=== PATIENT | male | born 1935 | race Caucasian/White ===

== ENCOUNTER 2019-09-26 22:08 | Observation (INO) | payer MEDICARE, BC ==
[~2019-09-26] VITALS: Ht 180.3 cm; Wt 79.4 kg
--- NOTE | 2019-09-26 23:56 | Diagnostic Imaging Report ---
EXAMINATION: Head CT without contrast. HISTORY:Unsteady gait, rule out possible stroke. COMPARISON:None. TECHNIQUE: Multidetector axial images were obtained from the foramen magnum to the vertex without contrast. The images were reconstructed using brain and bone algorithms. Thin section brain images were reformatted into coronal and sagittal planes. Dose modulation, iterative reconstruction, and/or weight based adjustment of the mA/kV was utilized to reduce the radiation dose to as low as reasonably achievable. Intravenous contrast: None IMAGE QUALITY: Acceptable. FINDINGS: Skull/scalp: No lytic or blastic. lesions. No surgical changes. Parenchyma: Nonspecific bilateral frontoparietal patchy white matter hypodensity are likely related to small vessel ischemic changes. No acute hemorrhage, mass or acute major vascular territorial infarct. Arteries: No density suggestive of thrombosis. Mild atherosclerotic calcification in bilateral carotid siphon. Dural sinuses: No abnormal density suggestive of thrombosis. Ventricles: Moderate compensated dilatation due to volume loss. No hydrocephalus Extra-axial spaces: No abnormal density. Brain volume: Generalized predominantly bifrontal age-related cerebral volume loss. Craniocervical junction: No mass, Chiari malformation, or basilar invagination. Sella: CSF filled empty sella. Paranasal/mastoid sinuses: Imaged portions unremarkable. IMPRESSION: No acute intracranial abnormality, particularly no acute hemorrhage, mass or acute major vascular territorial infarct. Mild supratentorial white matter microvascular ischemic changes. Generalized predominantly bifrontal cerebral volume loss. Signed by: Dr. Erlinda Mansfield M.D. on 09/26/2019 11:53 PM
[2019-09-27] VITALS (7 sets, daily range): BP systolic 124–164; BP diastolic 60–80
--- NOTE | 2019-09-27 00:35 | Diagnostic Imaging Report ---
EXAMINATION: CXR 2 VIEW - HOPD INDICATION: Unsteady gait, altered equilibrium COMPARISON: None FINDINGS: TUBES and LINES: None. LUNGS: Lungs are well inflated. Lungs are clear. There is no evidence of pneumonia or pulmonary edema. PLEURA: No pleural effusion or pneumothorax. HEART AND MEDIASTINUM: The cardiomediastinal silhouette is unremarkable. BONES AND SOFT TISSUES: No acute osseous lesion. Soft tissues are unremarkable. Degenerative changes in the spine. UPPER ABDOMEN: No free air under the diaphragm. IMPRESSION: No acute thoracic radiographic abnormality. Signed by: Roman Cortes DO on 09/27/2019 12:31 AM
[2019-09-27] MEDS ORDERED: ONDANSETRON HCL INJ 2MG/ML 2ML 2 MG/ML VIAL IV PRN (01:15)
[2019-09-27] MEDS ORDERED: ASPIRIN 81 MG CHEW TAB PO ONE (01:15)
[2019-09-27] MEDS ORDERED: SODIUM CHLORIDE FLUSH 10 ML SYR INJ PRN (01:15)
--- NOTE | 2019-09-27 01:21 | NUR ---
[facility] ETA 45 MINUTES
--- OUTSIDE RECORDS SUMMARY | 2019-09-27 01:26 | XMS REPORT ---
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 Allergies, Adverse Reactions, Alerts This patient has no known allergies or adverse reactions. Medications This patient has no known medications. Results Test Description Test Time Test Comments Text Results Atomic Results Result Comments CXR 2 VIEW - HOPD 2019-09-27 00:30:00 [place] [address] Patient Name: GIORGI HWANG MR #: [id number] : 1935 Age/Sex: 84/M Req #: [id number] [facility] Physician: Ordered by: VISHAL AGUDELO MD Report #: [id number] Location: [facility] Room/Bed: Procedure: [id number] HOPD/CXR 2 VIEW - HOPD Exam Date: 09/26/19 Exam Time: 2330 REPORT STATUS: Signed EXAMINATION: CXR 2 VIEW - HOPD INDICATION: Unsteady gait, altered equilibrium COMPARISON: None FINDINGS: TUBES and LINES: None. LUNGS: Lungs are well inflated. Lungs are clear. There is no evidence of pneumonia or pulmonary edema. PLEURA: No pleural effusion or pneumothorax. HEART AND MEDIASTINUM: The cardiomediastinal silhouette is unremarkable. BONES AND SOFT TISSUES: No acute osseous lesion. Soft tissues are unremarkable. Degenerative changes in the spine. UPPER ABDOMEN: No free air under the diaphragm. IMPRESSION: No acute thoracic radiographic abnormality. Signed by: Roman Cortes DO on 09/27/2019 12:31 AM Dictated By: ROMAN CORTES DO Transcribed By: DAVIS on 09/27/1930 COPY TO: VISHAL AGUDELO MD [facility] 2019-09-26 23:48:00 [place] [address] Patient Name: GIORGI HWANG MR #: [id number] : 1935 Age/Sex: 84/M Req #: [id number] Physician: Ordered by: VISHAL AGUDELO MD Report #: [id number] Location: [facility] Room/Bed: Procedure: [id number] HOPD/CT BRAIN [facility] Exam Date: 09/26/19 Exam Time: 2340 REPORT STATUS: Signed EXAMINATION: Head CT without contrast. HISTORY:Un steady gait, rule out possible stroke. COMPARISON:None. TECHNIQUE: Multidetector axial images were obtained from the foramen magnum to the vertex without contrast. The images were reconstructed using brain and bone algorithms. Thin section brain images were reformatted into coronal and sagittal planes. Dose modulation, iterative reconstruction, and/or weight based adjustment of the mA/kV was utilized to reduce the radiation dose to as low as reasonably achievable. Intravenous contrast: None IMAGE QUALITY: Acceptable. FINDINGS: Skull/scalp: No lytic or blastic. lesions. No surgical changes. Parenchyma: Nonspecific bilateral frontoparietal patchy white matter hypodensity are likely related to small vessel ischemic changes. No acute hemorrhage, mass or acute major vascular territorial infarct. Arteries: No density suggestive of thrombosis. Mild atherosclerotic calcification in bilateral carotid siphon. Dural sinuses: No abnormal density suggestive of thrombosis. Ventricles: Moderate compensated dilatation due to volume loss. No hydrocephalus Extra-axial spaces: No abnormal density. Brain volume: Generalized predominantly bifrontal age-related cerebral volume loss. Craniocervical junction: No mass, Chiari malformation, or basilar invagination. Sella: CSF filled empty sella. Paranasal/mastoid sinuses: Imaged portions unremarkable. IMPRESSION: No acute intracranial abnormality, particularly no acute hemorrhage, mass or acute major vascular territorial infarct. Mild supratentorial white matter microvascular ischemic changes. Generalized predominantly bifrontal cerebral volume loss. Signed by: Dr. Erlinda Mansfield M.D. on 09/26/2019 11:53 PM Dictated By: ERLINDA MANSFIELD MD 2011 Transcribed By: DAVIS on 09/26/196 COPY TO: VISHAL AGUDELO MD
--- NOTE | 2019-09-27 03:00 | NUR ---
Patient received via stretcher from the [facility] accompanied by family members. AAO x 4. Patient had no complaints of pain. Respirations even and non-labored. Admission history obtained. Initial physical assessment performed. Patient oriented to room, visiting hours, call light and plan of care. Fall precautions implemented. Patient instructed to call for assistance when needed . Call light within reach.
[2019-09-27] MEDS ORDERED: VASOTEC10 M1 PO (03:33)
[2019-09-27] MEDS ORDERED: VITAMIN D400 UNIT PO (03:33)
--- NOTE | 2019-09-27 06:21 | NUR ---
Dr. Bernal notified of routine consult. Reason: TIA. stated she would see patient later in the day.
[2019-09-27 06:33] LABS: CREATINE KINASE MB 3.2 ng/mL (0-5.0)
--- NOTE | 2019-09-27 07:00 | NUR ---
Shift report given to oncoming nurse.
--- NOTE | 2019-09-27 07:03 | NUR ---
Received patient lying in bed with eyes closed. Family at bedside. Respiration even and unlabored without SOB. Denies pain. Call light in reach.
[2019-09-27] MEDS: ASPIRIN 325 MG TAB EC PO SCH (08:39)
[2019-09-27 14:44] LABS: CREATINE KINASE 185 IU/L (30-200)
[2019-09-27] MEDS ORDERED: ENOXAPARIN SOD INJ 40 MG/0.4 ML SYR SC SCH (17:00)
[2019-09-27] MEDS: FAMOTIDINE 20 MG TAB PO SCH (18:13)
--- NOTE | 2019-09-27 19:13 | NUR ---
Report given to night assistant. Patient lying in bed with eyes open. Respiration even and unlabored without SOB. Call light in reach. Family members at bedside.
--- NOTE | 2019-09-27 19:22 | NUR ---
PT IS SITTING IN THE CHAIR WITH FAMILY AT BEDSIDE. RESPIRATION IS EVEN AND UNLABORED, NO DISTRESS NOTED. BED IN THE LOWEST POSITION, LOCKED, AND CALL LIGHT WITHIN REACH. WILL CONTINUE TO MONITOR.
[2019-09-27] MEDS ORDERED: NON-FORMULARY MEDICATION (Cholecalciferol (Vitamin D3) (Vitamin D) 50,000 UNITS) PO SCH (19:30)
[2019-09-27] MEDS ORDERED: ACETAMINOPHEN 325 MG TAB PO PRN (20:15)
[2019-09-27] MEDS ORDERED: ATORVASTATIN 20 MG TAB PO SCH (21:00)
[2019-09-28 00:09] VITALS: BP 134/71
--- NOTE | 2019-09-28 01:13 | Consultation ---
DATE OF CONSULTATION: 09/27/2019 Neurology Consult Note HISTORY OF PRESENT ILLNESS: Mr. Willis is an 84-year-old right-hand dominant man with past medical history significant only for hypertension admitted to [facility] on September 27, 2019 under observation status for a probable transient ischemic attack. On the evening of September 26, 2019, the patient was walking with his family when he experienced a sudden onset of poor balance and impairment of gait with drift towards the right side. Mr. Willis does not report a visual field cut or other disturbance, dysarthria, aphasia, weakness, numbness, dizziness, or confusion associated with the above symptoms. According to a family member at the bedside, the poor balance, gait impairment, and drift toward the right side toward persisted for approximately 10-15 minutes, then spontaneous which resolved. Later that same evening, Mr. Willis was [facility] a [facility] for further evaluation of his symptoms. Upon admission to the [facility], the patient was afebrile with a mildly elevated blood pressure and normal pulse. His neurological examination was documented as being nonfocal. Routine laboratory data, which included a urinalysis and urine drug screen was significant for mild hyponatremia with a serum sodium of 132, mild anemia as seen on the CBC with differential and platelets, and a mildly elevated myoglobin of 142. A urinalysis was within normal limits. A urine drug screen was negative. While at the [facility], a CT of the brain without contrast was performed. This study did not reveal evidence of recent large territorial ischemia or hemorrhage. Mr. Willis was subsequently transferred to [facility] and admitted under observation status for further evaluation and treatment of his symptoms. Mr. Willis has not experienced similar symptoms previously. To his knowledge, he has never had a transient ischemic attack or stroke prior to the events of September 26, 2019. The patient does endorse compliance with aspirin 325 mg by mouth daily. REVIEW OF SYSTEMS: Poor balance, impairment of gait, leaning forward/drift toward the right. Otherwise, a 12-point review of systems is negative. PAST MEDICAL HISTORY: Hypertension. PAST SURGICAL HISTORY: Bilateral cataract removal. PRIOR HOSPITALIZATIONS: None. FAMILY MEDICAL HISTORY: Both of the patient's parents from natural cause/old age. The patient had a brother who is from an unknown cancer. Mr. Willis has one biological son who is alive. However, his medical history is unknown. SOCIAL HISTORY: Mr. Willis is . He is retired from [employer]. The patient reports a remote history of tobacco use, but stopped smoking cigarettes approximately 50 years ago. The patient reports occasional alcohol use. Mr. Willis does not endorse current or prior recreational drug use. HOME MEDICATIONS: Aspirin 325 mg by mouth daily, enalapril 1 tablet by mouth daily. HOSPITAL MEDICATIONS: Aspirin, Zofran. ALLERGIES: NO KNOWN DRUG ALLERGIES. NO KNOWN FOOD ALLERGIES. NO KNOWN ALLERGIES TO LATEX. NO KNOWN ALLERGIES TO IODINE OR OTHER CONTRAST MATERIALS. PHYSICAL EXAMINATION: VITAL SIGNS: Height 71 inches, weight 175 pounds, BMI 24.4 kg/m2, blood pressure 124/60 mmHg, pulse 65 beats per minute, respiratory rate 20 breaths per minute, and oxygen saturation 98% on room air. GENERAL: The patient is awake and alert, does not appear distressed. Normal body habitus. HEENT: Normocephalic, atraumatic. Pupils are surgical. Moist mucous membranes. NECK: Supple. No appreciable thyromegaly. No appreciable carotid bruits. CARDIOVASCULAR: S1, S2, regular rate and rhythm. No murmurs, rubs, or gallops. RESPIRATORY: Clear to auscultation bilaterally. No wheezes, rhonchi, or rales. EXTREMITIES: The skin is warm and dry. No clubbing, cyanosis, or edema. The posterior tibial and dorsalis pedis pulses are 2+ and symmetric. SKIN: No rashes or lesions. NEUROLOGIC: Memory/Attention: The patient is awake and alert, oriented to person, place, time, and situation. Cranial Nerves: Cranial nerve I - not tested. Cranial nerve II, III, IV, and - pupils are surgical. Extraocular movements intact. No nystagmus. Cranial nerve V - sensation is intact to light touch and pinprick in the bilateral V1 through V3 distributions. Strength in the temporalis and masseter muscles is within normal limits. Cranial nerve VII - the face is symmetric as are all facial movements. Strength is within normal limits. Cranial nerve VIII - hearing is diminished to finger rub bilaterally. Cranial nerve IX, X-the soft palate elevates equally and symmetrically. Cranial nerve XI - normal strength of the bilateral sternocleidomastoid and trapezius muscles. Cranial nerve 12-the tongue protrudes midline and moves symmetrically from xyev-ik-yuka. Strength: Bulk is normal. Strength is 5/5 in the bilateral deltoids, triceps, biceps, brachioradialis, wrist flexors and extensors, finger flexors and extensors, intrinsic hand muscles, hip flexors, knee flexors and extensors, ankle dorsiflexion and plantar flexion, and intrinsic foot muscles. Tone is normal. DTRs: Deep tendon reflexes are 2+ and symmetric at the triceps, biceps, brachioradialis, and patellas. Deep tendon reflexes are trace and symmetric at the Achilles. Plantar responses are flexor bilaterally. Sensation: Sensation is intact to light touch and pinprick in both arms and both legs. Cerebellar: Ovpyek-nwgi-reabxq and heel-coughlin movements are intact without dysmetria or other impairment except as follows: Possible mild dysmetria with mibhdm-ekla-jhnnti movements of the right arm. Gait: Deferred. Speech: Spontaneous speech is normal without appreciable dysarthria or aphasia. Repetition is intact. Involuntary movements: None. Pronator Drift: None. LABORATORY DATA: Cardiac enzymes are negative x 3. DIAGNOSTIC STUDIES: Electrocardiogram 09/26/2019: Sinus rhythm at 79 beats per minute with possible premature atrial complexes with aberrant conduction. CT of the brain without contrast 09/26/2019: On my review, there is no evidence of recent or remote large territorial ischemia, hemorrhage, mass, or mass effect. Cerebral volumes are appropriate for age. There are findings compatible with ojyq-ef-qywwqqwu chronic small-vessel ischemic disease. Echocardiogram 09/27/2019: Ejection fraction 60%. Concentric left ventricular hypertrophy. Trace tricuspid regurgitation. Bilateral carotid artery ultrasound with Doppler 09/27/2019: There is atherosclerosis without hemodynamically significant stenosis throughout the bilateral carotid artery systems. Flow is antegrade in the bilateral vertebral arteries. ASSESSMENT AND PLAN: Mr. Willis is an 84-year-old right-hand dominant man with past medical history significant for hypertension only admitted to [facility] under observation status on September 26, 2019, with symptoms suspicious for transient ischemic attack. At present, the patient's neurological examination is nonfocal. Laboratory data and other diagnostic studies have been reviewed and are documented above. RECOMMENDATIONS: Are as follows: 1. A lipid panel has been ordered and will be drawn at approximately 0500 on September 28, 2019. A hemoglobin A1c will be added to these morning labs. 2. A MRI of the brain without contrast will be ordered to complete the patient's stroke evaluation. 3. Continue treatment with aspirin 325 mg by mouth daily for stroke prophylaxis. 4. The patient's goal blood pressure is less than 130/70 mmHg. At present, the patient's blood pressures are at goal. Continue to hold the patient's home antihypertensive medication. Monitor vital signs per unit protocol. 5. The patient's goal total cholesterol is less than 200 with LDL less than 70. Follow up the results of the lipid panel. 6. The patient's goal hemoglobin A1c is less than 7.0. Follow up the results of the hemoglobin A1c. Tight glycemic control is recommended while the patient is hospitalized. 7. A speech therapy consultation is not necessary. Physical therapy has evaluated the patient and determined he has no needs. 8. GI prophylaxis with Pepcid 20 mg by mouth twice daily with meals. DVT prophylaxis with Lovenox 40 mg subcutaneously daily. 9. Defer treatment of the remaining medical comorbidities to the primary and other services following the patient. 10. Anticipated disposition: Home with no needs in one day. Thank you for this consultation. I will continue to follow the patient while he remains in the hospital. TIME SPENT: 70 minutes. Dolores Busby MD CP/RAMILA /[id number] JULY
--- NOTE | 2019-09-28 02:07 | History and Physical ---
HISTORY OF PRESENT ILLNESS: The patient is an 84-year-old male with past medical history positive for hypertension. Apparently, [place] was walking so light and the family members saw him leaning to the right side. The symptoms lasted for 1 hour and then went away. The patient came in the following day to the emergency room. The patient's neurologic deficits are completely gone. He is feeling fine. REVIEW OF SYSTEMS: CARDIOVASCULAR: No chest pain or palpitation. RESPIRATORY: No shortness of breath. No cough. GASTROINTESTINAL: No nausea or vomiting. No diarrhea. GENITOURINARY: No frequency or dysuria. NEUROLOGIC: He was leaning to the right side, but he does not do it anymore. PAST MEDICAL HISTORY: Hypertension. SOCIAL HISTORY: He does not smoke, does not drink. PHYSICAL EXAMINATION: VITAL SIGNS: Blood pressure 143/70, temperature 37.4, heart rate 61 per minute, respiratory rate 18 per minute, and oxygen saturation 97%. HEART: Regular rhythm. Normal S1, S2 sound. LUNGS: Clear bilaterally. ABDOMEN: Soft. EXTREMITIES: No evidence of cyanosis or hematoma. NEUROLOGIC: Cranial nerves II through XII grossly normal. Motor strength 5/5 in upper and lower extremities. DIAGNOSTIC DATA: Carotid Doppler, no evidence of any significant carotid stenosis. Echocardiogram, ejection fraction 60%. Concentric left ventricular hypertrophy, tricuspid regurgitation. Cardiac enzymes are negative. IMPRESSION: 1. Transient ischemic attack. 2. Hypertension. PLAN OF TREATMENT: Aspirin 325 mg daily, Lipitor 20 mg daily, Pepcid 20 mg twice a day, and Lovenox 40 mg subcutaneously daily. We are going to get physical and occupational therapy evaluation, neurologic evaluation with Dr. Busby. MRI of the head tomorrow. Tentative discharge tomorrow if everything is negative. MD CLARICE Moya/RAMILA /[id number]
[2019-09-28 04:00] VITALS: BP 164/84
[2019-09-28 05:41] LABS: CHOL/HDL RATIO 2.8 (3.9-4.7)
[2019-09-28 07:52] VITALS: BP 156/79
[2019-09-28] MEDS ORDERED: ENALAPRIL MALEATE 10 MG TAB PO SCH (09:00)
[2019-09-28] MEDS: ASPIRIN 325 MG TAB EC PO SCH (09:52)
[2019-09-28] MEDS: FAMOTIDINE 20 MG TAB PO SCH (09:52)
[2019-09-28 10:23] VITALS: BP 156/79
[2019-09-28 11:37] VITALS: BP 150/79
--- NOTE | 2019-09-28 13:29 | Diagnostic Imaging Report ---
History: Hypertension, TIA,, unsteady gait Comparison studies: Head CT 09/26/2019 Technique: Sagittal and axial T2 FS, axial DWI, axial T2*GRE, axial T1 FLAIR and axial coronal T2 FLAIR. Intravenous contrast: None Findings: Several pulse sequences are somewhat limited artifacts related to patient motion. In spite of limitations: Scalp: Normal in signal. No masses. Bone marrow: Normal in signal intensity. Brain sulci: Moderately prominent. Ventricles: Moderate compensatory dilatation. No acute hydrocephalus. Extra axial spaces: No mass, no fluid collection. Parenchyma: No mass, hemorrhage or acute ischemia. A few scattered T2 FLAIR hyperintense foci in the supratentorial white matter are nonspecific but are most compatible with chronic microvascular ischemic changes. There is mildly confluent T2 FLAIR hyperintense changes also present in the periventricular white matter. There is moderate general is brain volume loss with moderate volume loss along the bilateral anteromedial temporal lobes and hippocampi (left greater than right). Suprasellar region: No abnormalities. Craniocervical junction: Patent foramen magnum. No Chiari malformation. Vessels: Normal flow-voids in the arteries and sinuses. Incidental findings: Lens replacements for previous cataract surgery. Mild inflammatory mucosal thickening or effusion in the left ethmoids. IMPRESSION: No acute ischemia or other acute intracranial abnormalities. Chronic findings: 1. Mild chronic microvascular ischemic changes. 2. Moderate generalized brain volume loss as described which can be seen with dementia spectrum disorders in the appropriate clinical context. Signed by: Dr. Aditya Anderson M.D. on 09/28/2019 1:26 PM
--- NOTE | 2019-09-28 16:01 | NUR ---
pt discharged home, pt and family member were educated on his medications and was asked to follow up with hid PCP, pt iv site removed no swelling no redness to site.
--- NOTE | 2019-09-29 04:41 | Discharge Summary ---
HISTORY OF PRESENT ILLNESS: An 84-year-old male with past medical history positive for hypertension. Apparently, he was noticed to have a tendency to lean to the right side [place] and the symptoms apparently went away within an hour. The patient came to the hospital. CT of the head did not show any evidence of any acute stroke. The patient was seen by Dr. Busby, who discharged the patient home with aspirin and Lipitor. MRI of the brain showed no acute ischemia or other acute intracranial abnormality, showed mild chronic microvascular ischemic changes, moderate generalized brain volume loss as described, which can be seen in dementia spectrum disorders in the appropriate clinical context. Also, he had a carotid Doppler, which showed no evidence of any significant carotid stenosis. No evidence of pericardial effusion. No evidence of valvular abnormality. He has LVH. PHYSICAL EXAMINATION: HEART: Showed regular rhythm. Normal S1 and S2 sound. LUNGS: Clear bilaterally. ABDOMEN: Soft. FINAL IMPRESSION: 1. Transient ischemic attack. 2. Hypertension. PLAN OF TREATMENT: The patient is going to be discharged on Lipitor 20 mg daily and aspirin 325 mg daily. He is also taking enalapril 20 mg once a day. Summary the patient is going to go home with home health for PT and OT. MD CLARICE Moya/RAMILA /[id number]
[2019-10-04] MEDS ORDERED: ERGOCALCIFEROL 50,000 UNIT CAP PO SCH (09:00)
== END 2019-09-28 15:58 | disposition home or self-care (01) ==
LOC: FSED 22:08 → ERHOLD 09-27 01:03 → MED/SURG2 09-27 02:33
PROVIDERS: ADMIT Internal Medicine; ATTEND Internal Medicine
DX: G45.9 Transient cerebral ischemic attack, unspecified (principal); I10 Essential (primary) hypertension
CPT/HCPCS: 36415 ×2; 70450; 70551; 71046; 80053; 80061; 81003; 82550; 82553 ×2; 83036; 84484 ×2; 85025; 85610; 93005; 93306; 93880; 97161; 99284; G0378 ×2; J1650

== ENCOUNTER 2019-12-28 12:37 | Emergency (ER) | payer MEDICARE, BC ==
[~2019-12-28] VITALS: Ht 180.3 cm; Wt 79.4 kg
[~2019-12-28 12:37] MED LIST: VASOTEC10 M1 PO; VITAMIN D400 UNIT PO
--- NOTE | 2019-12-28 13:27 | Diagnostic Imaging Report ---
Exam: Right hand 3 views Clinical History: Status post fall Findings: There is no evidence of acute fracture or malalignment. The articular joints are well-preserved. The soft tissue is unremarkable. Impression: No radiographic evidence of acute osseous injury. Signed by: Dr. Cristi Bush MD on 12/28/2019 1:25 PM
--- NOTE | 2019-12-28 14:16 | Diagnostic Imaging Report ---
Exam: Right elbow 2 views Clinical History: Status post fall Findings: There is no evidence of acute fracture or malalignment. The articular joints are well-preserved. The soft tissue is unremarkable. Impression: No radiographic evidence of acute osseous injury. Signed by: Dr. Cristi Bush MD on 12/28/2019 2:13 PM
--- NOTE | 2019-12-28 15:10 | Diagnostic Imaging Report ---
Right shoulder, 2 views History:Status post fall, right shoulder pain Comparison:None Findings: High riding configuration of the right humeral head with respect to the glenoid. Mild degenerative changes of the acromioclavicular joint. No additional significant bone or joint space abnormality. Impression: 1. No acute osseous injury. 2. High riding configuration of the right humeral head, suggesting full-thickness rotator cuff defect. Signed by: Lance Wills MD on 12/28/2019 3:08 PM
--- NOTE | 2019-12-28 15:12 | Diagnostic Imaging Report ---
Cervical Spine, 3 views History: Status post fall, neck pain Comparison: none Findings: No fracture, dislocation, or subluxation. Moderate diffuse cervical facet joint hypertrophy. Moderate degenerative disc disease at C5-C6 and C6-C7. Unremarkable prevertebral soft tissues. Impression: No acute findings in the cervical spine. Signed by: Lance Wills MD on 12/28/2019 3:10 PM
== END 2019-12-28 15:27 | disposition home or self-care (01) ==
LOC: FSED 12:37
DX: S63.511A Sprain of carpal joint of right wrist, initial encounter (principal); M25.511 Pain in right shoulder; M54.2 Cervicalgia; M25.521 Pain in right elbow; W01.0XXA Fall on same level from slipping, tripping and stumbling without subsequent striking against object, initial encounter; Y93.01 Activity, walking, marching and hiking; Y92.007 Garden or yard of unspecified non-institutional (private) residence as the place of occurrence of the external cause; I10 Essential (primary) hypertension; Z86.73 Personal history of transient ischemic attack (TIA), and cerebral infarction without residual deficits
CPT/HCPCS: 72040; 99283